=== PATIENT | male | born 1990 | race Caucasian/White ===

== ENCOUNTER 2020-10-17 18:49 | Outpatient (REF) | payer OTHER, SELFPAY ==
--- NOTE | ~2020-10-17 | MR_ITS ---
EXAMINATION: MR LUMBAR SPINE WITHOUT CONTRAST CLINICAL INFORMATION: Lumbar radiculopathy. Left leg pain and weakness. Right leg numbness and weakness with toe numbness. COMPARISON: None TECHNIQUE: MRI of the lumbar spine was obtained using routine sequences without contrast. FINDINGS: VERTEBRAL BODIES AND PARASPINAL STRUCTURES: Normal vertebral body alignment. The lumbar lordosis is maintained. No acute fracture or subluxation. No loss of vertebral body height. Mild loss of intervertebral disc height with disc desiccation at L4-L5 and L5-S1. No abnormal marrow signal. No evidence of acute osseous injury. The visualized paraspinal soft tissues are unremarkable. CONUS MEDULLARIS AND CAUDA EQUINA: Normal, terminating at the level of L1. SPINAL LEVELS: T12-L1: No significant disc bulge. No central canal or neural foraminal stenosis. L1-L2: No significant disc bulge. Bilateral facet arthropathy. No central canal or neural foraminal stenosis. L2-L3: No significant disc bulge. Bilateral facet arthropathy and thickening of the ligamentum flavum. No central canal or neural foraminal stenosis. L3-L4: No significant disc bulge. Bilateral facet arthropathy and thickening of the ligamentum flavum. No central canal or neural foraminal stenosis. L4-L5: Broad-based disc bulge with a superimposed posterior central disc protrusion. Bilateral facet arthropathy and thickening of the ligamentum flavum causing mild central canal stenosis which encroaches upon the traversing bilateral L4 nerve roots in the lateral recesses. [id number] left and mild right neural foraminal stenosis. L5-S1: Broad-based disc bulge with a superimposed right paracentral disc protrusion and posterior annular fissuring. The protrusion contacts the traversing right S1 nerve root within the lateral recess. Bilateral facet arthropathy with mild bilateral neural foraminal stenosis. Perineural cyst on the left measuring up to 1.7 cm. MR/MR lumbar spine wo con IMPRESSION: 1. Broad-based disc bulge at L5-S1 with posterior annular fissuring and a superimposed right paracentral disc protrusion which contacts the traversing right S1 nerve root in the lateral recess. Bilateral facet arthropathy with mild bilateral neural foraminal stenosis. Left-sided perineural cyst measuring 1.7 cm. 2. Broad-based disc bulge at L4-L5 with a superimposed posterior central disc protrusion, bilateral facet arthropathy, and thickening of the ligamentum flavum. Findings cause mild central canal stenosis and encroach upon the traversing bilateral L4 nerve roots. [id number] left and mild right neural foraminal stenosis.
== END 2020-10-17 18:50 | disposition home or self-care (01) ==
LOC: HO.MRI 18:49
PROVIDERS: Visit Provider Nurse Practitioner Family
DX: M54.16 Radiculopathy, lumbar region (principal)
CPT/HCPCS: 72148

== ENCOUNTER 2020-12-29 19:14 | Emergency (ER) | payer OTHER, SELFPAY ==
[2020-12-29 19:27] VITALS: BP 126/71; PULSE 74; RESP 16; TEMP 36.8; O2SAT 99; BMI 27.7
[2020-12-29] MEDS: Post Exposure Medication Kit 1 KIT PO (20:35)
[2020-12-29 20:47] LABS: MANUAL DIFF FLAG NO
[2020-12-29 20:49] LABS: Basophils Percent Auto 0.3 % (0-2); Eosinophils Percent Auto 0.3 % (0-4); Hemoglobin 13.4 g/dl (14.0-18.0); Imm Gran Abs Auto 0.01 X10*3/uL (0.00-0.03); Imm Gran Pct Auto 0.1 % (0.0-0.4); Lymphocytes Absolute Auto 2.3 X10*3/uL (1.2-4.9); Lymphocytes Percent Auto 31.2 % (20-40); Mean Corpuscular HGB Conc 34.4 g/dl (31.0-36.0); Mean Corpuscular Hemoglobin 30.9 pg (27.0-33.0); Mean Corpuscular Volume 89.9 fL (80-98); Mean Platelet Volume 11.2 fL (9.4-12.4); Monocytes Absolute Auto 0.4 X10*3/uL (0.1-1.2); Neutrophils Absolute Auto 4.6 X10*3/uL (2.0-8.3); Neutrophils Percent Auto 62.1 % (45-73); Platelet Count 190 X10*3/uL (160-400); Red Blood Count 4.34 X10*6/uL (4.60-5.80); White Blood Count 7.4 X10*3/uL (4.8-10.8)
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
[2020-12-29 21:20] LABS: Alanine Aminotransferase 39 U/L (0-40); Albumin Level 4.7 g/dL (3.5-5.0); Alkaline Phosphatase 70 U/L (39-117); Aspartate Amino Transferase 90 U/L (5-37); Bilirubin Direct 0.5 mg/dL (0.0-0.5); Bilirubin Total 1.6 mg/dL (0.0-1.0); Total Protein 7.3 g/dL (6.5-8.0)
[2021-01-01 04:43] LABS: HBc Num1 0.17 S/CO (0.00-0.79); HBsAGNum1 0.15 S/CO (0.00-0.99); HIV AB/AG Nonreactive (Nonreactive); HIV Num 1 0.06 S/CO (0.00-0.99); Hepatitis B Core Antibody Nonreactive (Nonreactive); Hepatitis B Surface Antigen Negative (Negative); ~HepC Num1 0.16 S/CO (0.00-0.79); ~Hepatitis C Antibody Nonreactive (Nonreactive)
[2021-01-01 05:14] LABS: HBS Num1 2.29 mIU/mL (0-7.99); ~Hepatitis B Surface Antibody NONREACTIVE (Nonreactive)
== END 2020-12-29 21:08 | disposition home or self-care (01) ==
PROVIDERS: Nurse Practitioner Family; Emergency Provider Emergency Medicine; PCP Nurse Practitioner Family
DX: Z20.828 Contact with and (suspected) exposure to other viral communicable diseases (principal); Z79.899 Other long term (current) drug therapy
CPT/HCPCS: 36415; 80076; 85025; 86704; 86706; 86803; 87340; 87389; 99283

== ENCOUNTER → 2021-01-01 14:54 | Outpatient (BNVA) | payer OTHER, SELFPAY | PROVIDERS: PCP Nurse Practitioner Family; Visit Provider Physician Assistant | DX: Z77.21 Contact with and (suspected) exposure to potentially hazardous body fluids (principal) | CPT/HCPCS: 90715; 90746; 99203 ==

== ENCOUNTER → 2021-02-09 09:20 | Outpatient (BNVA) | payer OTHER, SELFPAY | PROVIDERS: PCP Nurse Practitioner Family | DX: Z77.21 Contact with and (suspected) exposure to potentially hazardous body fluids (principal); Z23 Encounter for immunization | CPT/HCPCS: 36415; 84450; 84460; 87389; 90746; 99211 ==

== ENCOUNTER 2021-09-06 10:09 | Outpatient (REF) | payer OTHER, SELFPAY ==
[2021-09-06 11:21] LABS: Basophils Percent Auto 0.8 % (0-2); Eosinophils Percent Auto 1.6 % (0-4); Hematocrit 43.1 % (42.0-52.0); Hemoglobin 14.5 g/dl (14.0-18.0); Lymphocytes Absolute Auto 1.1 X10*3/uL (1.2-4.9); Lymphocytes Percent Auto 43.1 % (20-40); MANUAL DIFF FLAG SCAN; Mean Corpuscular HGB Conc 33.6 g/dl (31.0-36.0); Mean Corpuscular Hemoglobin 30.1 pg (27.0-33.0); Mean Corpuscular Volume 89.4 fL (80.0-98.0); Mean Platelet Volume 11.5 fL (9.4-12.4); Monocytes Absolute Auto 0.4 X10*3/uL (0.1-1.2); Neutrophils Percent Auto 37.5 % (45-73); Platelet Count 153 X10*3/uL (160-400); Red Blood Count 4.82 X10*6/uL (4.60-5.80); Red Cell Distribution Width 12.6 % (11.0-16.0); SCAN SMEAR FLAG 1
[2021-09-06 11:22] LABS: White Blood Count 2.5 X10*3/uL (4.8-10.8)
[2021-09-06 11:32] LABS: Appearance Urine CLEAR; Color Urine YELLOW; Glucose Urine UA NEG (NEG); Leukocyte Esterase Urine NEG (NEG); Nitrite Urine NEG (NEG); Urine Blood NEG (NEG); Urine Ketones NEG (NEG); Urine Protein NEG (NEG-TRACE)
[2021-09-06 12:01] LABS: Alanine Aminotransferase 32 U/L (0-40); Albumin Level 4.2 g/dL (3.5-5.0); Alkaline Phosphatase 71 U/L (39-117); Anion Gap 12 (12-20); Aspartate Amino Transferase 34 U/L (5-37); Bilirubin Total 0.7 mg/dL (0.0-1.0); Blood Urea Nitrogen 12 mg/dL (9-16); Calcium 9.4 mg/dL (8.4-10.2); Carbon Dioxide 29 mmol/L (22-29); Chloride 106 mmol/L (96-108); Cholesterol 169 mg/dL; Estimated Glomerular Filt Rate > 60; Glucose Fasting 97 mg/dL (60-99); HDL Cholesterol 48 mg/dL; LDL Cholesterol Calculated 108 mg/dl; Potassium 4.8 mmol/L (3.3-5.1); Sodium 142 mmol/L (135-145); Total Protein 6.9 g/dL (6.5-8.0); Triglycerides 65 mg/dL
[2021-09-06 12:13] LABS: ~Hepatitis C Antibody Nonreactive (Nonreactive)
[2021-09-06 12:14] LABS: HBc Num1 0.05 S/CO (0.00-0.79); Hepatitis B Core Antibody Nonreactive (Nonreactive); Hepatitis B Surface Antigen Negative (Negative); ~Hepatitis B Surface Antibody REACTIVE (Nonreactive)
[2021-09-06 12:46] LABS: SLIDE REVIEW VERIFIED
[2021-09-07 09:56] LABS: HBsAGNum1 0.23 S/CO (0.00-0.99)
[2021-09-07 11:28] LABS: Hepatitis A Antibody IgM 0.26 Index (0-0.79); ~Hepatitis A Antibody IgM Nonreactive (Nonreactive)
== END 2021-09-06 10:10 | disposition home or self-care (01) ==
LOC: HO.HMGCLDS 10:09
PROVIDERS: Visit Provider Nurse Practitioner Family
DX: Z00.00 Encounter for general adult medical examination without abnormal findings (principal)
CPT/HCPCS: 36415; 80053; 80061; 81003; 84443; 85025; 86704; 86706; 86709; 86803; 87340

== ENCOUNTER 2021-10-23 11:28 | Outpatient (REF) | payer OTHER, SELFPAY ==
[2021-10-23 13:48] LABS: MANUAL DIFF FLAG NO
[2021-10-23 13:52] LABS: Basophils Percent Auto 0.4 % (0-2); Eosinophils Absolute Auto 0.1 X10*3/uL (0.0-0.4); Eosinophils Percent Auto 2.3 % (0-4); Hematocrit 43.2 % (42.0-52.0); Hemoglobin 14.2 g/dl (14.0-18.0); Imm Gran Abs Auto 0.01 X10*3/uL (0.00-0.03); Imm Gran Pct Auto 0.2 % (0.0-0.4); Lymphocytes Absolute Auto 2.1 X10*3/uL (1.2-4.9); Lymphocytes Percent Auto 40.8 % (20-40); Mean Corpuscular HGB Conc 32.9 g/dl (31.0-36.0); Mean Corpuscular Hemoglobin 29.8 pg (27.0-33.0); Mean Corpuscular Volume 90.8 fL (80.0-98.0); Mean Platelet Volume 11.6 fL (9.4-12.4); Monocytes Absolute Auto 0.6 X10*3/uL (0.1-1.2); Monocytes Percent Auto 11.1 % (2-11); Neutrophils Absolute Auto 2.3 x10*3/uL (2.0-8.3); Neutrophils Percent Auto 45.2 % (45-73); Platelet Count 217 X10*3/uL (160-400); Red Blood Count 4.76 X10*6/uL (4.60-5.80); Red Cell Distribution Width 13.2 % (11.0-16.0); White Blood Count 5.2 X10*3/uL (4.8-10.8)
== END 2021-10-23 11:29 | disposition home or self-care (01) ==
LOC: HO.HMGCLDS 11:28
PROVIDERS: PCP Nurse Practitioner Family; Visit Provider Nurse Practitioner Family
DX: D72.819 Decreased white blood cell count, unspecified (principal); D69.6 Thrombocytopenia, unspecified
CPT/HCPCS: 36415; 85025

== ENCOUNTER 2024-01-06 13:43 | Outpatient (AMB) | payer OTHER, SELFPAY ==
[2024-01-06 14:23] VITALS: BP 132/76; PULSE 76; O2SAT 98; BMI 27.4
--- NOTE | 2024-01-06 14:23 | MHC.PC.OV ---
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 Pt reports since this procedure pain has been gone , but has significant numbness to second right toe running to posterior lateral right foot, up to lateral right calf. Pt reports he cannot stand up on his right toes. He reported last week he saw neuro-surg (follow up). MRI was done recently. Pt reports he was told there is nothing more they can do, he may get more nerve activity back in the future, but time will tell and most likely not. Because of this extensive numbness he notices some weakness, pointing to his right lateral calf. He also reports intermittent right drop foot, i'm always tripping on carpets randomly . I will refer to our physiatry team for their input. [facility] Medical History Lumbar nerve root compression Lumbar stenosis Surgical History History of facial surgery Social History Housing: House Alcohol intake: current Alcohol intake frequency: holidays/special occasions only Patient Tobacco Use Status: Never used Tobacco e-Cigarette/Vaping Use: Never Used Second Hand Smoke Exposure: No service: No Current occupational status: employed Current occupation: [employer] Current occupational exposures/hazards: Yes Cognitive needs: No Hearing needs: No Vision needs: Yes Questionnaire PHQ-9 Over the last 2 weeks, how often have you been bothered by any of the following problems? 1. Little interest or pleasure in doing things: not at all 2. Feeling down, depressed, or hopeless: not at all 3. Trouble falling or staying asleep, or sleeping too much: not at all 4. Feeling tired or having little energy: not at all 5. Poor appetite or overeating: not at all 6. Feeling bad about yourself - or that you are a failure or have let yourself or your family down: not at all 7. Trouble concentrating on things, such as reading the newspaper or watching television: not at all 8. Moving or speaking so slowly that other people could have noticed. Or the opposite - being so fidgety or restless that you have been moving around a lot more than usual: not at all 9. Thoughts that you would be better off or of hurting yourself in some way: not at all Total score: 0 Depression Screening Interpretation: Negative Depression Screening Done: Yes 00067 - PHQ-9 Billing: Yes Source: Developed by Drs. Jose Carlos Gomez, Diana Barney, Barrie Pierre and colleagues, with an educational patrick from [email or web address]. Thrive Questionnaire Date Thrive assessed: 01/06/24 I am a: Patient What is your living situation today?: I have a steady place to live Within the past 12 months, did the food you bought not last and you didn't have the money to get more?: Never true Within the past 12 months, did you worry whether your food would run out before you got money to buy more?: Never true Do you have trouble paying for medicines?: No Do you have trouble getting transportation to medical appointments?: No Do you have trouble paying your heating and electricity bill?: No Do you have trouble taking care of your child, family member or friend?: No Do you have trouble with day-to-day activities such as bathing, preparing meals, shopping, managing finances, etc.?: No Are you currently unemployed and looking for a job?: No Are you interested in more education?: No Please select the resources that you would like help with: None Currently or been in a relationship where the following occur: No concerns reported THRIVE Score: 0 AUDIT C Alcohol Use Questionnaire (AUDIT-C) 1. How often do you have a drink containing alcohol?: Monthly or less 2. How many drinks containing alcohol do you have on a typical day when you are drinking?: 1 or 2 3. How often do you have six or more drinks on one occasion?: Never Total Score: 1 Score Reviewed/Action Taken: Yes KRISTINA-7 AMB Questionnaire KRISTINA-7 Date KRISTINA - 7 assessed: 01/06/24 Feeling nervous, anxious, or on edge: 0 = Not at all Not being able to stop or control worryin = Not at all Worrying too much about different things: 0 = Not at all Trouble relaxin = Not at all Being so restless that it is hard to sit still: 0 = Not at all Becoming easily annoyed or irritable: 0 = Not at all Feeling afraid as if something awful might happen: 0 = Not at all Total KRISTINA-7 score (0-4 normal; 5-9 mild; 10-14 moderate; 15-21 severe): 0 Source: Developed by Drs. Jose Carlos Gomez, Diana Barney, Barrie Pierre and colleagues, with an educational patrick from [email or web address]. KRISTINA-7 Assessment Billing KRISTINA-7 Assessment Tool: KRISTINA-7 Assessment 17638 Review of Systems Const Denies chills and Denies fever(s) Eyes Denies blurry vision ENT Denies vertigo, Denies dizziness and Denies sore throat Card Denies chest pain at rest, Denies chest pain with activity, Denies diaphoresis, Denies dyspnea and Denies dyspnea on exertion Resp Denies cough, Denies dyspnea, Denies dyspnea on exertion and Denies wheezing GI Denies abdominal pain, Denies melena, Denies hematochezia, Denies constipation, Denies diarrhea and Denies loose stools Denies hematuria Musc Denies numbness and Denies tingling Skin/Breast Denies lesions Neuro Denies vertigo, Denies dizziness, Denies numbness and Denies tingling Psych Denies anxiety, Denies depression, Denies homicidal ideation, Denies suicidal ideation and Denies other (substance abuse) Aller/Immun Denies wheezing Physical exam (Primary Care) Vital Signs: Last Vital Signs Pulse 76 01/06/24 14:23 BP 132/76 01/06/24 14:23 Pulse Ox 98 01/06/24 14:23 Oxygen Delivery Method Room Air 01/06/24 14:23 BMI result Body Mass Index 27.4 Tobacco/Smoking Status: Tobacco use Status Tobacco use date assessed 01/06/24 01/06/24 14:25 Patient Tobacco Use Status Never used Tobacco 01/06/24 14:25 e-Cigarette/Vaping Use Never Used 01/06/24 14:25 PHQ-9: PHQ-9 Score PHQ-9: Total score 0 01/06/24 16:19 Depression Screening Interpretation: Negative Thrive Assessment: Date of Thrive Assessment Date Thrive assessed 01/06/24 01/06/24 14:25 Currently or been in a relationship where the following occur: No concerns reported Const General: cooperative Nutritional Appearance: well nourished Orientation/consciousness: patient oriented x3 HENMT Head: Yes normal to inspection, Yes normocephalic and Yes atraumatic Ears: TM normal on the right and TM normal on the left Eyes General: appearance normal, both eyes and all related structures Alignment and Position: alignment normal and position normal Neck Neck: Yes normal visual inspection and Yes no lymphadenopathy Resp Effort & Inspection: normal respiratory effort Auscultation: clear to auscultation bilaterally Cardio Rate: regular rate Rhythm: regular rhythm Heart sounds: S1 normal heart sound present, S2 normal heart sound present and no murmurs GI Palpation (GI): Soft to palpation and nontender Auscultation: normal bowel sounds Male General Exam: Yes normal external exam Penis: normal penis Scrotum: scrotum normal, testes descended bilaterally and no inguinal hernias Testes: no testicular mass Skin Rashes: no rashes Neuro Other: + patellar reflexes bilat, + Achilles reflex bilat. Unable to stand on toes (right). plantar flexion and dorsiflexion against resistance (strong). lateral and medial right foot movement without difficult. General: patient oriented x3, moves all extremities, no focal motor deficits and deep tendon reflexes 2+ bilaterally Romberg Test: Negative Extrem Right lower extremity: no edema Left lower extremity: no edema Psych Appearance: grossly normal Mental Status: mental status grossly normal Speech and movement: Normal speech and movement present Affect: normal affect Attitude: cooperative Thought process: Normal thought process present Thought content: Normal thought content present Insight: Good insight present (Psych) Judgement: Good judgement present (Psych) Assessment and Plan Assessment & Plan (1) Numbness: Comment: RLE, residual after microdiskectomy L5-S1 2022 Code(s): R20.0 - Anesthesia of skin (2) Foot drop: Code(s): M21.379 - Foot drop, unspecified foot Plan: referred to physiatry (3) Physical exam: Code(s): Z00.00 - Encounter for general adult medical examination without abnormal findings Plan: labs ordered Orders: Orders UA CC w/rflx Micro + Cult Today Z00.00 - Encounter for general adult medical examination without abnormal findings Lipid Panel Today Z00.00 - Encounter for general adult medical examination without abnormal findings Complete Blood Count Auto Diff Today Z00.00 - Encounter for general adult medical examination without abnormal findings Comprehensive [place]. Panel Fast Today Z00.00 - Encounter for general adult medical examination without abnormal findings TSH reflex Free T4 Today Z00.00 - Encounter for general adult medical examination without abnormal findings Referrals Physiatry Referral M21.379 - Foot drop, unspecified foot, R20.0 - Anesthesia of skin Coding Level of Care Code Est Pt Level 3 (15394) Est Pt Prev Care 18-39y(46325) Diagnoses Numbness R20.0 Foot drop M21.379 Physical exam Z00.00 Additional Codes KRISTINA-7 Assessment Billing - KRISTINA-7 Assessment Tool: KRISTINA-7 Assessment 22302 ([id number])
== END 2024-01-06 15:10 | disposition home or self-care (01) ==
PROVIDERS: PCP Nurse Practitioner Family; Visit Provider Nurse Practitioner Family
DX: M21.371 Foot drop, right foot (principal); R20.0 Anesthesia of skin; Z04.2 Encounter for examination and observation following work accident
CPT/HCPCS: 99213

== ENCOUNTER 2024-09-21 10:15 | Outpatient (AMB) | payer OTHER, SELFPAY ==
--- NOTE | 2024-09-21 10:19 | MHC.PC.OV ---
Vital Signs 09/21/24 10:20 Height 6 ft 1 in Weight 220 lb BMI 29.0 BP 130/78 Blood Pressure Location Lt brachial Position Sitting Pulse 65 Pulse Source Pulse Oximeter Pulse Oximetry (%) 98 Oxygen Delivery Method Room Air Intake Visit Reasons: Post back surgery visit after complications Aquatics Manager Required: No Accompanied by: Self / Same As Patient Allergies No Known Allergies Allergy (Verified 09/21/24 10:20) Tobacco use date assessed: 09/21/24 Dental Screening Dental Screen Date: 09/21/24 Did you have a dental visit in the last 12 months?: Yes Did you have a dental problem in the last 6 months where you did not have access to dental care?: No Was dental information given to patient?: Patient has dentist HPI Post back surgery visit after complications HPI Details Chief Complaint Ongoing left hip and lower back pain. 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 Post-surgery, pain relief was substantial, yet numbness persisted down the right lower extremity. His current complaint is of left hip pain, ongoing for several months. This pain has not been relieved through physical therapy or daily stretches, and movements of the upper body appear to intensify the symptoms. Neurological consultation indicated the numbness might be an enduring issue. Social History - Engages in daily stretching exercises Health Maintenance Review of Systems - Musculoskeletal: Reports left hip pain, lower back pain; denies popping or clicking in the hip. - Neurological: Reports numbness in the right lower extremity. -denies any s/s of cauda equina Physical Exam General: Cooperative, healthy appearing, comfortable, no acute distress and well developed Orientation: Patient oriented x3 Limitations: No limitations Head: Normal to inspection Ears: Hearing grossly normal bilaterally Nose: Normal external nose present Face and sinus: Normal facial exam Eyes: Appearance normal, both eyes and all related structures Neck: Normal visual inspection and Yes full ROM Respiratory: Normal respiratory effort and able to speak in complete sentences. Clear to auscultation bilaterally Cardiovascular: Regular rate and rhythm. Normal S1 and S2 GI: Normal to inspection. Soft to palpation and nontender Skin: No rashes or lesions noted Neuro: Patient oriented x3, positive patellar reflex is bilateral Extremities: Normal to inspection, numbness down right lower extremity and to foot, toes. Significant discomfort in left hip region with movement of upper torso. Results Plan An MRI is scheduled to evaluate the left hip pain further, as understanding its cause is pivotal. Continued engagement in physical therapy and regular stretching exercises is advised, despite limited relief reported by the patient. We also acknowledged the potential permanence of the right lower extremity numbness post-surgery. It remains essential to revisit any changes or escalation in symptoms. Discussion Notes We discussed the chronic nature of his residual numbness following the lumbar microdiscectomy, acknowledging the neurosurgeon's comments that this might be a lasting issue. I informed him of the plan to obtain an MRI to explore the cause of his left hip pain more thoroughly. The risks and benefits of proceeding with an MRI were reviewed, including its role in assessing potential exacerbation of the lumbar condition or other musculoskeletal abnormalities. The next steps, including potential follow-up actions dependent on MRI results, were outlined. We revisited the importance of ongoing physical therapy as part of his management strategy and set expectations regarding the variable efficacy of such interventions. Patient Instructions - Continue daily stretching exercises as prescribed. - Attend scheduled physical therapy sessions. - Report any worsening symptoms or new symptoms. - Follow up for MRI as scheduled. - Contact the office if there are any concerns or changes in your condition. [facility] Medical History Lumbar nerve root compression Lumbar stenosis Surgical History History of back surgery History of facial surgery Social History Housing: House Alcohol intake: current Alcohol intake frequency: holidays/special occasions only Patient Tobacco Use Status: Never used Tobacco e-Cigarette/Vaping Use: Never Used Second Hand Smoke Exposure: No service: No Current occupational status: employed Current occupation: [employer] Current occupational exposures/hazards: Yes Cognitive needs: No Hearing needs: No Vision needs: Yes Questionnaire PHQ-9 Over the last 2 weeks, how often have you been bothered by any of the following problems? 1. Little interest or pleasure in doing things: not at all 2. Feeling down, depressed, or hopeless: not at all 3. Trouble falling or staying asleep, or sleeping too much: not at all 4. Feeling tired or having little energy: not at all 5. Poor appetite or overeating: not at all 6. Feeling bad about yourself - or that you are a failure or have let yourself or your family down: not at all 7. Trouble concentrating on things, such as reading the newspaper or watching television: not at all 8. Moving or speaking so slowly that other people could have noticed. Or the opposite - being so fidgety or restless that you have been moving around a lot more than usual: not at all 9. Thoughts that you would be better off or of hurting yourself in some way: not at all Total score: 0 Depression Screening Interpretation: Negative Depression Screening Done: Yes 48387 - PHQ-9 Billing: Yes Source: Developed by Drs. Jose Carlos Gomez, Diana Barney, Barrie Pierre and colleagues, with an educational patrick from [employer]. Thrive Questionnaire Date Thrive assessed: 09/21/24 I am a: Patient What is your living situation today?: I have a steady place to live Within the past 12 months, did the food you bought not last and you didn't have the money to get more?: Never true Within the past 12 months, did you worry whether your food would run out before you got money to buy more?: Never true Do you have trouble paying for medicines?: No Do you have trouble getting transportation to medical appointments?: No Do you have trouble paying your heating and electricity bill?: No Do you have trouble taking care of your child, family member or friend?: No Do you have trouble with day-to-day activities such as bathing, preparing meals, shopping, managing finances, etc.?: No Are you currently unemployed and looking for a job?: No Are you interested in more education?: No Please select the resources that you would like help with: None Currently or been in a relationship where the following occur: No concerns reported THRIVE Score: 0 AUDIT C Alcohol Use Questionnaire (AUDIT-C) 1. How often do you have a drink containing alcohol?: Monthly or less 2. How many drinks containing alcohol do you have on a typical day when you are drinking?: 1 or 2 3. How often do you have six or more drinks on one occasion?: Never Total Score: 1 Score Reviewed/Action Taken: Yes KRISTINA-7 AMB Questionnaire KRISTINA-7 Date KRISTINA - 7 assessed: 09/21/24 Feeling nervous, anxious, or on edge: 0 = Not at all Not being able to stop or control worryin = Not at all Worrying too much about different things: 0 = Not at all Trouble relaxin = Not at all Being so restless that it is hard to sit still: 0 = Not at all Becoming easily annoyed or irritable: 0 = Not at all Feeling afraid as if something awful might happen: 0 = Not at all Total KRISTINA-7 score (0-4 normal; 5-9 mild; 10-14 moderate; 15-21 severe): 0 Source: Developed by Drs. Jose Carlos Gomez, Diana Barney, Barrie Pierre and colleagues, with an educational patrick from [employer]. KRISTINA-7 Assessment Billing KRISTINA-7 Assessment Tool: KRISTINA-7 Assessment 10716 Physical exam (Primary Care) Vital Signs: Last Vital Signs Pulse 65 09/21/24 10:20 BP 130/78 09/21/24 10:20 Pulse Ox 98 09/21/24 10:20 Oxygen Delivery Method Room Air 09/21/24 10:20 BMI result Body Mass Index 29.0 Tobacco/Smoking Status: Tobacco use Status Tobacco use date assessed 09/21/24 09/21/24 10:25 Patient Tobacco Use Status Never used Tobacco 09/21/24 10:25 e-Cigarette/Vaping Use Never Used 09/21/24 10:25 PHQ-9: PHQ-9 Score PHQ-9: Total score 0 09/21/24 10:25 Depression Screening Interpretation: Negative Thrive Assessment: Date of Thrive Assessment Date Thrive assessed 09/21/24 09/21/24 10:25 Currently or been in a relationship where the following occur: No concerns reported Coding Level of Care Code Est Pt Level 3 (09934) Diagnoses Left hip pain M25.552 Numbness R20.0 Lumbar back pain with radiculopathy affecting right lower extremity M54.16 Additional Codes KRISTINA-7 Assessment Billing - KRISTINA-7 Assessment Tool: KRISTINA-7 Assessment 57114 ([id number]) PHQ-9 - 42930 - PHQ-9 Billing: Yes ([id number]) Assessment & Plan Assessment & Plan (1) Left hip pain: Code(s): M25.552 - Pain in left hip Category: Medical (2) Numbness: Comment: RLE, residual after microdiskectomy L5-S1 2022 Code(s): R20.0 - Anesthesia of skin Category: Medical (3) Lumbar back pain with radiculopathy affecting right lower extremity: Code(s): M54.16 - Radiculopathy, lumbar region Category: Medical Plan . Orders: Orders MR hip LT wo con Today M25.552 - Pain in left hip
[2024-09-21 10:20] VITALS: BP 130/78; PULSE 65; O2SAT 98; BMI 29.0
== END 2024-09-21 12:56 | disposition home or self-care (01) ==
LOC: HO.HMCC 10:15
PROVIDERS: PCP Nurse Practitioner Family; Visit Provider Nurse Practitioner Family
DX: M25.552 Pain in left hip (principal); R20.0 Anesthesia of skin; M54.16 Radiculopathy, lumbar region

== ENCOUNTER → 2024-09-21 10:15 | Outpatient (BNVA) | payer OTHER, SELFPAY | PROVIDERS: PCP Nurse Practitioner Family; Visit Provider Nurse Practitioner Family | DX: M25.552 Pain in left hip (principal); R20.0 Anesthesia of skin; M54.16 Radiculopathy, lumbar region | CPT/HCPCS: 96127 ==

== ENCOUNTER 2024-10-12 12:27 | Outpatient (REF) | payer OTHER, SELFPAY ==
--- NOTE | ~2024-10-12 | XR_ITS ---
EXAMINATION: XR HIP 2 OR MORE VIEWS LEFT HISTORY: M25.552 - Pain in left hip COMPARISON: There are no prior studies for comparison. FINDINGS: Two views of the left hip are submitted. Osseous mineralization is normal. There is no fracture or dislocation. The joint space is maintained. The soft tissues are unremarkable. XR/XR hip LT min 2V IMPRESSION: Unremarkable examination of the left hip Electronically signed by: Jose Carlos Berry MD 10/12/2024 03:00 PM EDT
--- OUTSIDE RECORDS SUMMARY | 2024-10-12 12:34 | XMS_ITS | Clinical Summary ---
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 Name Role Phone Unavailable Primary Care Provider Unavailabl e Social History Tobacco Use Types Packs/Day Years Used Date Smoking Tobacco: Never Assessed Sex and Gender Information Value Date Recorded Sex Assigned at Not on file Legal Sex Male 7:37 PM EST Gender Identity Not on file Sexual Orientation Not on file Plan of Treatment Health Maintenance Due Date Last Done Comments DTaP,Tdap,and Td Vaccines (1 - Tdap) 09/19/2011 Hepatitis B Vaccines (1 of 3 - 19+ 3-dose series) 09/19/2011 COVID-19 Vaccine (2023-2 5 season) 2024 Influenza Vaccine (Season Ended) 2025 HIB Vaccines Aged Out No longer eligi ble based on patient's age to complete this topic HPV Vaccines Aged Out No longer eligi ble based on patient's age to complete this topic Hepatitis A Vaccines Aged Out No long er eligible based on patient's age to complete this topic IPV Vaccines Aged Out No longer eligi ble based on patient's age to complete this topic MMR Vaccines Aged Out No longer eligi ble based on patient's age to complete this topic Meningococcal ACWY Vaccine Aged Out N o longer eligible based on patient's age to complete this topic Meningococcal B Vaccine Aged Out No l onger eligible based on patient's age to complete this topic Pneumococcal Vaccine: Pediat rics (0 to 5 Years) and At-Risk Patients (6 to 64 Years) Aged Out No longer eligible b ased on patient's age to complete this topic RSV Immunization Patients Un ye 20 months Aged Out No longer eligible b ased on patient's age to complete this topic Varicella Vaccines Aged Out No longer eligible based on patient's age to complete this topic
== END 2024-10-12 12:28 | disposition home or self-care (01) ==
LOC: HO.HMGCX 12:27
PROVIDERS: PCP Nurse Practitioner Family; Visit Provider Nurse Practitioner Family
DX: M25.552 Pain in left hip (principal)
CPT/HCPCS: 73502

== ENCOUNTER → 2024-10-12 13:03 | Outpatient (BNV) | payer OTHER, SELFPAY | PROVIDERS: PCP Nurse Practitioner Family; Visit Provider Radiology Diagnostic Radiology | DX: M25.552 Pain in left hip (principal); Z04.2 Encounter for examination and observation following work accident | CPT/HCPCS: 73502 ==

== ENCOUNTER → 2024-10-25 07:45 | Outpatient (BNV) | payer OTHER, SELFPAY | PROVIDERS: PCP Nurse Practitioner Family; Visit Provider Radiology Diagnostic Radiology | DX: S73.192A Other sprain of left hip, initial encounter (principal) | CPT/HCPCS: 73721 ==

== ENCOUNTER 2024-10-25 08:01 | Outpatient (REF) | payer OTHER, SELFPAY ==
--- NOTE | ~2024-10-25 | MR_ITS ---
EXAMINATION: MR HIP WITHOUT CONTRAST, LEFT CLINICAL INFORMATION: Left hip pain TECHNIQUE: Multiplanar multisequence imaging through a lower extremity joints was performed {With} intra-articular contrast Prior: None FINDINGS: Labrum: Linear high fluid signal is present at the base of the anterior labrum, partially extending into the substance of the labrum between 9-10:00 consistent with a tear. Articular Cartilage/Joint fluid: There is a deep fissure in the articular cartilage at Junction with superior labrum between 11-1:00.. There is a physiologic volume of joint fluid. Ligament/Muscle/Tendon: Ligament of teres is intact. There is mildly increased signal on fluid sensitive sequences at the enthesis of the gluteus medius and gluteus minimus on the greater trochanter. There is no muscle edema or fatty streaking. Neurovascular: Major neurovascular structures are unremarkable and symmetrical. Deep and superficial soft tissues: There is no intrapelvic mass or ascites. Visualized bowel is grossly unremarkable. Subcutaneous soft tissues are within normal limits. There is no adenopathy. Bones/Marrow: Bone marrow signal is physiologic. SI joints are symmetrical without erosions, or ankylosis. Pubic symphysis joint is unremarkable. HIP DATA: Acetabular version: 25 degrees (wnl >14 degrees) Lateral Center Edge Angle: 30 degrees (wnl (20-25 degrees)-40 degrees) Femoral Neck-shaft angle: A 27 degrees (wnl = 120-135 degrees) MR/MR hip LT wo con IMPRESSION: Anterior left hip labral tear between 9 and 10:00 o'clock. Additionally, there is separation between superior labrum and acetabular articular cartilage between 11-1:00 o'clock. Mild tendinopathy of distal left gluteus minimus and medius tendons. The patient's hip pain after intra-articular injection containing anesthetic. Electronically signed by: Sebastien Major MD 10/25/2024 01:01 PM EDT
--- OUTSIDE RECORDS SUMMARY | 2024-10-25 08:04 | XMS_ITS | Clinical Summary ---
Author Organization [facility] ity Address [address] [place] [address] Care Team Providers Care Stable Helper Name Role Phone Unavailable Primary Care Provider [...]
== END 2024-10-25 08:02 | disposition home or self-care (01) ==
LOC: HO.MRI 08:01
PROVIDERS: PCP Nurse Practitioner Family; Visit Provider Nurse Practitioner Family
DX: M25.552 Pain in left hip (principal)
CPT/HCPCS: 73721